=== PATIENT | female | born 1980 | race Caucasian/White ===

== ENCOUNTER 2018-11-24 15:25 | Emergency (ER) | payer MEDICAID ==
[2018-11-24 16:24] LABS: URINE PH (Dip) POC 5.5 (5.0-8.5)
[2018-11-24 16:24] LABS: URINE BLOOD (Dip) POC Trace-lysed (NEGATIVE); URINE GLUCOSE (Dip) POC Negative (NEGATIVE); URINE KETONES (Dip) POC Negative (NEGATIVE); URINE LEUKOCYTE EST (Dip) POC Trace (NEGATIVE); URINE NITRITE (Dip) POC Negative (NEGATIVE); URINE TOTAL PROTEIN POC Negative (NEGATIVE)
[2018-11-24] MEDS: KETOROLAC 30 MG INJ IM (16:32)
== END 2018-11-24 16:51 | disposition home or self-care (01) ==
LOC: FTE 15:25
DX: N39.0 Urinary tract infection, site not specified (principal)
CPT/HCPCS: 81003; 81025; 96372; 99284-25

== ENCOUNTER 2018-12-11 22:03 | Emergency (ER) | payer MEDICAID ==
[2018-12-11] MEDS: IBUPROFEN 600 MG TAB PO (22:33)
[2018-12-11] MEDS: HYDROCODONE/APAP (5/325) TAB PO (22:37)
== END 2018-12-12 00:46 | disposition home or self-care (01) ==
LOC: FTE 12-12 00:46
DX: S52.332A Displaced oblique fracture of shaft of left radius, initial encounter for closed fracture (principal); V18.4XXA Pedal cycle driver injured in noncollision transport accident in traffic accident, initial encounter
CPT/HCPCS: 29125; 73110-LT; 99283-25